=== PATIENT | male | born 1970 | race Caucasian/White ===

== ENCOUNTER 2016-12-26 07:34 | Day surgery (SDC) | payer OTHER ==
[2016-12-20 16:28] VITALS: BMI 40.8
[2016-12-26] MEDS ORDERED: PROPOFOL 20 ML ONE ×2 (07:41)
[2016-12-26] MEDS ORDERED: LIDOCAINE HCL/PF 2% SDV 5ML VIAL ONE (07:41)
[2016-12-26 10:16] VITALS: BP 133/65; PULSE 75; TEMP 98.2
--- NOTE | 2016-12-28 11:36 | PATH ---
Surgical Pathology Report Patient Name: STANLEY BROWNLEE [facility]. Rec. #: [id number] /Age/Gender: 1970 (Age: 46) / M Account: [id number] Location: [facility]-ENDOSCOPY Taken: 12/26/2016 Received: 12/26/2016 Reported: 12/28/2016 Physicians: Bruce Cueto M.D. Specimen(s) Received A: BX CECUM B: BX RIGHT COLON C: BX TRANSVERSE COLON D: BX LEFT COLON E: BX SIGMOID F: BX DISTAL SIGMOID G: BX RECTUM Clinical History Rectal bleeding History of distal colitis, rule out colitis Final Diagnosis A. COLON, CECUM, BIOPSY: COLONIC MUCOSA WITH NO PATHOLOGIC CHANGES. NO ACTIVE COLITIS, ARCHITECTURAL DISTORTION, GRANULOMATA, OR DYSPLASIA IDENTIFIED. NO MICROSCOPIC COLITIS IDENTIFIED (NO LYMPHOCYTIC OR COLLAGENOUS COLITIS IDENTIFIED). B. COLON, RIGHT, BIOPSY: COLONIC MUCOSA WITH NO PATHOLOGIC CHANGES. NO ACTIVE COLITIS, ARCHITECTURAL DISTORTION, GRANULOMATA, OR DYSPLASIA IDENTIFIED. NO MICROSCOPIC COLITIS IDENTIFIED (NO LYMPHOCYTIC OR COLLAGENOUS COLITIS IDENTIFIED). C. COLON, TRANSVERSE, BIOPSY: COLONIC MUCOSA WITH NO PATHOLOGIC CHANGES. NO ACTIVE COLITIS, ARCHITECTURAL DISTORTION, GRANULOMATA, OR DYSPLASIA IDENTIFIED. NO MICROSCOPIC COLITIS IDENTIFIED (NO LYMPHOCYTIC OR COLLAGENOUS COLITIS IDENTIFIED). D. COLON, LEFT, BIOPSY: COLONIC MUCOSA WITH NO PATHOLOGIC CHANGES. NO ACTIVE COLITIS, ARCHITECTURAL DISTORTION, GRANULOMATA, OR DYSPLASIA IDENTIFIED. NO MICROSCOPIC COLITIS IDENTIFIED (NO LYMPHOCYTIC OR COLLAGENOUS COLITIS IDENTIFIED). E. COLON, SIGMOID, BIOPSY: COLONIC MUCOSA WITH NO PATHOLOGIC CHANGES. NO ACTIVE COLITIS, ARCHITECTURAL DISTORTION, GRANULOMATA, OR DYSPLASIA IDENTIFIED. NO MICROSCOPIC COLITIS IDENTIFIED (NO LYMPHOCYTIC OR COLLAGENOUS COLITIS IDENTIFIED). F. COLON, DISTAL SIGMOID, BIOPSY: ACTIVE COLITIS WITH FOCAL ARCHITECTURAL DISTORTION SUGGESTIVE OF IDIOPATHIC INFLAMMATORY BOWEL DISEASE. FOLLICULAR HYPERPLASIA OF MUCOSA ASSOCIATED LYMPHOID TISSUE PRESENT. NO GRANULOMATA OR DYSPLASIA IDENTIFIED. G. COLON, RECTUM, BIOPSY: ACTIVE COLITIS WITH ARCHITECTURAL DISTORTION SUGGESTIVE OF IDIOPATHIC INFLAMMATORY BOWEL DISEASE. NO GRANULOMATA OR DYSPLASIA IDENTIFIED. Comment: Recommend correlation with clinical findings and follow up as clinically indicated. Electronically Signed Caden Saunders M.D. Gross Description A. Received in formalin, labeled "cecum" are 2 niño, irregular portions of soft tissue measuring 0.3 and 0.4 cm. in greatest dimension. The specimens are submitted in toto in one cassette. B. Received in formalin, labeled "right colon" are 2 niño, irregular portions of soft tissue measuring 0.4 and 0.6 cm. in greatest dimension. The specimens are submitted in toto in one cassette. C. Received in formalin, labeled "transverse" are 3 niño, irregular portions of soft tissue ranging from 0.1-0.5 cm. in greatest dimension. The specimens are submitted in toto in one cassette. D. Received in formalin, labeled "left colon" are 2 niño, irregular portions of soft tissue averaging 0.2 cm. in greatest dimension. The specimens are submitted in toto in one cassette. E. Received in formalin, labeled "sigmoid" are 2 niño, irregular portions of soft tissue measuring 0.4 and 0.5 cm. in greatest dimension. The specimens are submitted in toto in one cassette. F. Received in formalin, labeled "distal sigmoid" are 2 niño, irregular portions of soft tissue measuring 0.4 and 0.5 cm. in greatest dimension. The specimens are submitted in toto in one cassette. G. Received in formalin, labeled "rectum" are 2 niño, irregular portions of soft tissue measuring 0.3 and 0.4 cm. in greatest dimension. The specimens are submitted in toto in one cassette. 12/27/201612/27/2016
== END 2016-12-26 10:18 | disposition home or self-care (01) ==
LOC: FASU-ENDO 07:34
PROVIDERS: ATTEND Internal Medicine Gastroenterology
PROC: 0DBN8ZX Excision of Sigmoid Colon, Via Natural or Artificial Opening Endoscopic, Diagnostic (ICD-10-PCS; 2016-12-26)
PROC: 0DBP8ZX Excision of Rectum, Via Natural or Artificial Opening Endoscopic, Diagnostic (ICD-10-PCS; 2016-12-26)
PROC: 0DBM8ZX Excision of Descending Colon, Via Natural or Artificial Opening Endoscopic, Diagnostic (ICD-10-PCS; 2016-12-26)
PROC: 0DBH8ZX Excision of Cecum, Via Natural or Artificial Opening Endoscopic, Diagnostic (ICD-10-PCS; 2016-12-26)
PROC: 0DBK8ZX Excision of Ascending Colon, Via Natural or Artificial Opening Endoscopic, Diagnostic (ICD-10-PCS; principal; 2016-12-26 09:06)
PROC: 0DBL8ZX Excision of Transverse Colon, Via Natural or Artificial Opening Endoscopic, Diagnostic (ICD-10-PCS; 2016-12-26 09:06)
DX: Z87.19 Personal history of other diseases of the digestive system (principal); K52.89 Other specified noninfective gastroenteritis and colitis
CPT/HCPCS: 88305-TC

== ENCOUNTER 2022-01-12 23:30 | Emergency (ER) | payer OTHER ==
[2022-01-12 23:36] VITALS: TEMP 97.9; BMI 43.0
[2022-01-13 00:45] LABS: BASO % 0.8 % (0-2.0); EOS % 2.4 % (0-4.5); HEMATOCRIT 41.5 % (35.4-49); LYMPH % 35.8 % (8-40); MCH 28.3 pg (25.7-33.7); MCHC 33.8 g/dl (32.0-35.9); MEAN CELL VOLUME 83.6 fl (80-96); MEAN PLT VOLUME 8.5 fl (7.5-11.1); MONO % 9.4 % (3.8-10.2); NEUT % 51.6 % (42.8-82.8); PLATELET COUNT 267 10^3/uL (134-434); RBC 4.96 M/mm3 (4.00-5.60); RDW 13.7 % (11.9-15.9); WHITE BLOOD COUNT 7.6 K/mm3 (4.0-10.0)
[2022-01-13 01:05] LABS: CHLORIDE 107 mmol/L (98-107); SODIUM 140 mmol/L (136-145)
[2022-01-13 01:07] LABS: ALBUMIN 3.6 g/dl (3.4-5.0); ANION GAP 5 MMOL/L (8-16); BLOOD UREA NITROGEN 16.9 mg/dL (7-18); CALCIUM 8.8 mg/dL (8.5-10.1); CO2 28 mmol/L (21-32); GLUCOSE,RANDOM 89 mg/dL (74-106)
[2022-01-13 01:10] LABS: CREATININE 0.9 mg/dL (0.55-1.3); SGOT/AST 14 U/L (15-37); SGPT/ALT 34 U/L (13-61)
[2022-01-13 01:12] LABS: BILIRUBIN,TOTAL 0.2 mg/dL (0.2-1); TOT PROT 6.8 g/dl (6.4-8.2)
[2022-01-13 01:13] LABS: ALK PHOS 53 U/L (45-117)
[2022-01-13 01:24] LABS: INR 0.96 (0.83-1.09)
[2022-01-13 01:27] LABS: ACTIVATED PTT 33.5 SECONDS (25.2-36.5)
[2022-01-13 05:58] VITALS: BP 165/115; PULSE 68
== END 2022-01-13 06:06 | disposition home or self-care (01) ==
LOC: FER 23:30
DX: I10 Essential (primary) hypertension (principal)
CPT/HCPCS: 36415; 71045-TC-FY; 80053; 84484; 85025; 85610; 85730; 86850; 86900; 86901; 93005; 99285-25

== ENCOUNTER 2022-03-14 19:41 | Emergency (ER) | payer OTHER ==
[2022-03-14 20:00] VITALS: TEMP 98.8; BMI 43.0
[2022-03-14 20:42] LABS: HEMATOCRIT 40.8 % (35.4-49); HEMOGLOBIN 14.1 G/dL (11.7-16.9); MCH 29.4 pg (25.7-33.7); MCHC 34.6 g/dl (32.0-35.9); MEAN CELL VOLUME 84.8 fl (80-96); MEAN PLT VOLUME 8.4 fl (7.5-11.1); PLATELET COUNT 260.7 10^3/uL (134-434); RBC 4.81 10^6/uL (4.00-5.60); RDW 14.7 % (11.9-15.9); WHITE BLOOD COUNT 6.6 10^3/uL (4.0-10.8)
[2022-03-14 20:50] LABS: ALBUMIN 3.9 g/dl (3.4-5.0); BILIRUBIN,TOTAL 0.5 mg/dl (0.2-1); CALCIUM 9.3 mg/dl (8.5-10); CREATININE 0.9 mg/dl (0.55-1.3); TOT PROT 6.9 g/dl (6.4-8.2)
[2022-03-14 21:17] VITALS: BP 149/90; PULSE 72
[2022-03-14 22:32] LABS: PLATELET ESTIMATE ADEQUATE
== END 2022-03-14 23:16 | disposition home or self-care (01) ==
LOC: SUPCPDRO 19:41 → FER 19:41
DX: R07.9 Chest pain, unspecified (principal); J20.9 Acute bronchitis, unspecified
CPT/HCPCS: 36415; 80053; 84484; 85025; 93005; 99284-25

== ENCOUNTER 2023-02-21 04:05 | Emergency (ER) | payer OTHER ==
[2023-02-21 04:16] VITALS: PULSE 68; RESP 16; TEMP 97.7; BMI 44.4
[2023-02-21 06:10] VITALS: BP 156/105
== END 2023-02-21 10:07 | disposition home or self-care (01) ==
LOC: FER 04:05
DX: R07.9 Chest pain, unspecified (principal); F41.9 Anxiety disorder, unspecified; E66.01 Morbid (severe) obesity due to excess calories; I10 Essential (primary) hypertension
CPT/HCPCS: 36415; 82550; 84484; 93005; 99284-25

== ENCOUNTER 2023-03-06 12:37 | Observation (INO) | payer OTHER ==
[2023-03-06 14:59] LABS: BASO % 0.6 % (0-2.0); EOS % 0.7 % (0-4.5); HEMATOCRIT 41.9 % (35.4-49); HEMOGLOBIN 14.7 GM/dL (11.7-16.9); LYMPH % 25.1 % (8-40); MCH 29.3 pg (25.7-33.7); MCHC 35.1 g/dl (32.0-35.9); MEAN CELL VOLUME 83.4 fl (80-96); MEAN PLT VOLUME 9.6 fl (7.5-11.1); MONO % 8.9 % (3.8-10.2); NEUT % 64.7 % (42.8-82.8); PLATELET COUNT 230 10^3/uL (134-434); RBC 5.03 M/mm3 (4.00-5.60); RDW 13.5 % (11.9-15.9); URINE APPEARANCE CLEAR; URINE BILIRUBIN NEGATIVE (NEGATIVE); URINE COLOR YELLOW; URINE GLUCOSE (UA) NEGATIVE (NEGATIVE); URINE KETONE NEGATIVE (NEGATIVE); URINE LEUK ESTERASE NEGATIVE (NEGATIVE); URINE NITRITE NEGATIVE (NEGATIVE); URINE PROTEIN NEGATIVE (NEGATIVE); URINE UROBILINOGEN 0.2 mg/dL (0.2-1.0); WHITE BLOOD COUNT 7.1 K/mm3 (4.0-10.0)
[2023-03-06 15:06] LABS: INR 1.13 (0.83-1.09); PROTHROMBIN TIME (PATIENT) 13.1 SEC (9.7-13.0)
[2023-03-06 15:18] LABS: BLOOD UREA NITROGEN 14.4 mg/dL (7-18); CALCIUM 9.2 mg/dL (8.5-10.1); MAGNESIUM 2.1 mg/dL (1.8-2.4)
[2023-03-06 15:19] LABS: ALBUMIN 3.6 g/dl (3.4-5.0)
[2023-03-06 15:22] LABS: CREATININE 0.9 mg/dL (0.55-1.3); PHOSPHOROUS 3.8 mg/dL (2.5-4.9)
[2023-03-06 15:23] LABS: BILIRUBIN,TOTAL 0.4 mg/dL (0.2-1); TOT PROT 6.9 g/dl (6.4-8.2)
[2023-03-06] MEDS ORDERED: LACTATED RINGERS SOLUTION 1000 ML INFUS.BAG IV ONE (15:34)
[2023-03-06 16:11] LABS: N-TERMINAL BNP 20.6 pg/ml (5-125)
[2023-03-06 18:39] LABS: BLOOD UREA NITROGEN 13.5 mg/dL (7-18); CALCIUM 8.7 mg/dL (8.5-10.1)
[2023-03-06 18:43] LABS: CREATININE 0.8 mg/dL (0.55-1.3)
[2023-03-06] MEDS ORDERED: amLODIPine BESYLATE 5 MG TABLET (FP) PO ONE (18:55)
[2023-03-06] MEDS ORDERED: amLODIPine BESYLATE 5 MG TABLET (FP) ONE (18:57)
[2023-03-06 20:47] LABS: COCAINE, UR NEGATIVE (NEGATIVE); OPIATES, URI NEGATIVE (NEGATIVE)
[2023-03-06 20:48] LABS: METHADONE, UR NEGATIVE (NEGATIVE); PHENCYCLIDINE,URINE NEGATIVE (NEGATIVE); URINE BENZODIAZEPINES NEGATIVE (NEGATIVE)
[2023-03-06 21:00] LABS: URINE AMPHETAMINES NEGATIVE (NEGATIVE); URINE BARBITURATES NEGATIVE (NEGATIVE)
[2023-03-06 23:11] VITALS: BMI 43.7
[2023-03-07] MEDS ORDERED: SERTRALINE HCL 25 MG TABLET (FP) PO ONE (08:00)
[2023-03-07 08:04] LABS: BASO % 0.6 % (0-2.0); EOS % 1.4 % (0-4.5); HEMATOCRIT 42.4 % (35.4-49); LYMPH % 31.2 % (8-40); MCH 29.6 pg (25.7-33.7); MCHC 35.3 g/dl (32.0-35.9); MEAN PLT VOLUME 9.8 fl (7.5-11.1); MONO % 9.1 % (3.8-10.2); NEUT % 57.7 % (42.8-82.8); PLATELET COUNT 237 10^3/uL (134-434); RBC 5.05 M/mm3 (4.00-5.60); RDW 13.5 % (11.9-15.9); WHITE BLOOD COUNT 5.8 K/mm3 (4.0-10.0)
[2023-03-07 08:18] LABS: CALCIUM 9.3 mg/dL (8.5-10.1)
[2023-03-07 08:19] LABS: ALBUMIN 3.8 g/dl (3.4-5.0); BLOOD UREA NITROGEN 9.5 mg/dL (7-18); MAGNESIUM 2.4 mg/dL (1.8-2.4)
[2023-03-07 08:22] LABS: CREATININE 0.8 mg/dL (0.55-1.3); PHOSPHOROUS 3.6 mg/dL (2.5-4.9)
[2023-03-07 08:23] LABS: BILIRUBIN,TOTAL 0.4 mg/dL (0.2-1); TOT PROT 7.2 g/dl (6.4-8.2)
[2023-03-07] MEDS ORDERED: ENOXAPARIN NA (PORCINE) 40 MG/0.4 ML DISP.SYRIN SQ SCH (10:00)
[2023-03-07 13:51] VITALS: TEMP 97.1
[2023-03-07 14:46] VITALS: BP 150/93; PULSE 75; RESP 18
[2023-03-08] MEDS ORDERED: SERTRALINE HCL 50 MG TABLET (FP) PO SCH (06:30)
== END 2023-03-07 14:58 | disposition home or self-care (01) ==
LOC: JER 12:37 → JERBED 19:29 → J4W 21:50
PROVIDERS: ADMIT Internal Medicine; ATTEND Internal Medicine
PROC: 3E0337Z Introduction of Electrolytic and Water Balance Substance into Peripheral Vein, Percutaneous Approach (ICD-10-PCS; principal; 2023-03-06)
DX: R00.1 Bradycardia, unspecified (principal); R55 Syncope and collapse; Z88.6 Allergy status to analgesic agent; Z88.2 Allergy status to sulfonamides
CPT/HCPCS: 0241U-QW; 36415; 71045-TC-FY; 80048; 80053; 80307; 81003; 83735; 83880; 84100; 84443; 84484; 85025; 85610; 85730; 93005; 93010; 93306-TC; 99285-25; G0378

== ENCOUNTER 2024-09-13 05:47 | Inpatient (IN) | payer OTHER ==
[2024-09-13 06:00] VITALS: BMI 41.5
[2024-09-13] MEDS ORDERED: HYDROmorphone HCl 2 MG/ML VIAL ONE (06:08)
[2024-09-13] MEDS ORDERED: ONDANSETRON 4 MG/2 ML VIAL ONE ×2 (06:09→10:00)
[2024-09-13] MEDS: HYDROmorphone HCl 2 MG/ML VIAL IVPB STA (06:25)
[2024-09-13] MEDS: SODIUM CHLORIDE 1,000 ML IV ONE (06:25)
[2024-09-13] MEDS: ONDANSETRON 4 MG/2 ML VIAL IVPB ONE (06:25)
[2024-09-13 06:54] LABS: HEMOGLOBIN 14.6 GM/dL (11.7-16.9); MCH 28.1 pg (25.7-33.7); MCHC 33.3 g/dl (32.0-35.9); MEAN CELL VOLUME 84.3 fl (80-96); MEAN PLT VOLUME 8.6 fl (7.5-11.1); PLATELET COUNT 311 10^3/uL (134-434); RBC 5.21 M/mm3 (4.00-5.60); RDW 13.5 % (11.9-15.9); WHITE BLOOD COUNT 7.6 K/mm3 (4.0-10.0)
[2024-09-13 07:02] LABS: INR 1.06 (0.83-1.09); PROTHROMBIN TIME (PATIENT) 12.2 SEC (9.7-13.0)
[2024-09-13 07:11] LABS: POTASSIUM 4.3 mmol/L (3.5-5.1)
[2024-09-13 07:13] LABS: ALBUMIN 3.8 g/dl (3.4-5.0); CALCIUM 9.2 mg/dL (8.5-10.1)
[2024-09-13 07:14] LABS: BLOOD UREA NITROGEN 14.6 mg/dL (7-18); MAGNESIUM 2.1 mg/dL (1.8-2.4)
[2024-09-13 07:17] LABS: CREATININE 0.9 mg/dL (0.55-1.3); PHOSPHOROUS 3.9 mg/dL (2.5-4.9)
[2024-09-13 07:18] LABS: BILIRUBIN,TOTAL 0.3 mg/dL (0.2-1); TOT PROT 7.2 g/dl (6.4-8.2)
[2024-09-13] MEDS ORDERED: morphine SULFATE 4 MG/ML VIAL ONE (09:50)
[2024-09-13] MEDS: ONDANSETRON 4 MG/2 ML VIAL IVPUSH ONE (09:59)
[2024-09-13] MEDS: morphine CARPU-JECT 4 MG/1 ML DISP.SYRIN IVPUSH ONE (09:59)
[2024-09-13] MEDS ORDERED: cefOXitin SODIUM 2 GM VIAL (RESTRICTED TO ID) IVPB ONE (10:41)
[2024-09-13] MEDS: CEFOXITIN SODIUM 2 GM in DEXTROSE 5%-WATER - 100 ML IVPB ONE (10:42)
[2024-09-13] MEDS: morphine CARPU-JECT 2 MG/1 ML DISP.SYRIN IVPUSH ONE (11:16)
[2024-09-13] MEDS ORDERED: PROPOFOL 20 ML ONE ×2 (11:40→12:38)
[2024-09-13] MEDS ORDERED: SUCCINYLCHOLINE CHLORIDE 200 MG/10 ML SYRINGE ONE (11:41)
[2024-09-13] MEDS ORDERED: ROCURONIUM BROMIDE 50 MG/5 ML SYRINGE ONE (11:41)
[2024-09-13] MEDS ORDERED: MIDAZOLAM HCL 2 MG/2 ML SINGLE DOSE VIAL ONE (11:41)
[2024-09-13] MEDS ORDERED: ACETAMINOPHEN INJECTION 100 ML ONE (11:48)
[2024-09-13] MEDS ORDERED: FENTANYL CITRATE/PF 50 MCG/ML VIAL ONE (11:48)
[2024-09-13] MEDS ORDERED: ONDANSETRON 4 MG/2 ML VIAL IVPUSH PRN ×2 (11:59→13:35)
[2024-09-13] MEDS ORDERED: LACTATED RINGERS SOLUTION 1,000 ML IV SCH (12:00)
[2024-09-13] MEDS ORDERED: SUGAMMADEX SODIUM 200 MG/2 ML VIAL ONE ×2 (12:33→12:59)
[2024-09-13] MEDS ORDERED: BUPIVACAINE HCL/PF 0.5% (5MG/ML) 10 ML VIAL ONE (12:36)
[2024-09-13] MEDS: BUPIVACAINE HCL/PF 0.5% (5MG/ML) 10 ML VIAL IJ ONE (13:18)
[2024-09-13] MEDS: LACTATED RINGERS SOLUTION 1,000 ML IV SCH (13:45)
[2024-09-13] MEDS: ACETAMINOPHEN 500 MG TABLET (FP) PO SCH (17:53)
[2024-09-13] MEDS: KETOROLAC TROMETHAMINE 15 MG/ML VIAL IVPUSH PRN (23:15)
[2024-09-14 07:02] VITALS: BP 158/98; PULSE 96; RESP 20; TEMP 100.8
[2024-09-14] MEDS: OXYMETAZOLINE 0.05% NASAL SOLUTION 15 ML BOTTLE NS ONE (07:50)
[2024-09-14] MEDS: AMOX TR/POT CLAV 875MG/125MG TABLETS (FP) PO SCH (07:52)
[2024-09-14 08:41] LABS: HEMATOCRIT 40.6 % (35.4-49); HEMOGLOBIN 13.5 G/dL (11.7-16.9); MCH 28.3 pg (25.7-33.7); MCHC 33.1 g/dl (32.0-35.9); MEAN CELL VOLUME 85.2 fl (80-96); MEAN PLT VOLUME 9.8 fl (7.5-11.1); PLATELET COUNT 203.2 10^3/uL (134-434); RBC 4.76 10^6/uL (4.00-5.60); RDW 14.2 % (11.9-15.9); WHITE BLOOD COUNT 4.8 10^3/uL (4.0-10.8)
[2024-09-14 08:43] LABS: PLATELET ESTIMATE ADEQUATE
[2024-09-14 09:02] LABS: ALBUMIN 3.8 g/dl (3.4-5.0); BILIRUBIN,TOTAL 0.5 mg/dl (0.2-1); CALCIUM 8.8 mg/dl (8.5-10.1); MAGNESIUM 1.7 mg/dL (1.8-2.4); PHOSPHOROUS 3.3 (2.5-4.9); POTASSIUM 3.9 mmol/L (3.5-5.1); TOT PROT 6.3 g/dl (6.4-8.2)
[2024-09-14] MEDS: amLODIPine BESYLATE 5 MG TABLET (FP) PO SCH (09:07)
[2024-09-14] MEDS: SERTRALINE HCL 50 MG TABLET (FP) PO SCH (09:07)
[2024-09-14] MEDS ORDERED: SERTRALINE HCL 50 MG TABLET (FP) PO SCH (10:00)
[2024-09-14] MEDS ORDERED: amLODIPine BESYLATE 5 MG TABLET (FP) PO SCH (10:00)
== END 2024-09-14 11:26 | disposition home or self-care (01) | DRG 399 ==
LOC: FER 05:47 → FM/S 10:04
PROVIDERS: ADMIT Internal Medicine; ATTEND Internal Medicine
PROC: 0DTJ4ZZ Resection of Appendix, Percutaneous Endoscopic Approach (ICD-10-PCS; principal; 2024-09-13 12:38)
DX: K35.80 Unspecified acute appendicitis (principal); I10 Essential (primary) hypertension; R50.9 Fever, unspecified
CPT/HCPCS: 36415; 74177-TC; 80053; 82550; 83605; 83735; 84100; 84484; 85025; 85027; 85610; 86850; 86900; 86901; 88304-TC; 94760; 99285-25; J0131; Q9967